=== PATIENT | male | born 1965 | race Caucasian/White ===

== ENCOUNTER 2021-04-20 12:45 | Inpatient (IN) | payer OTHER ==
[~2021-04-20] VITALS: Ht 172.7 cm; Wt 79.1 kg
[2021-04-20 15:11] VITALS: BP 130/74
[2021-04-20] MEDS ORDERED: ZOCOR 20 MG TAB20 M1 PO (15:22)
[2021-04-20] MEDS ORDERED: ASA81BEC PO (15:22)
[2021-04-20] MEDS ORDERED: LISINOPRIL20 MG PO (15:23)
[2021-04-20] MEDS ORDERED: MULTI VITAMIN1 EACH PO (15:26)
[2021-04-20] MEDS ORDERED: CHOLECALCIFEROL PO (15:45)
[2021-04-20] MEDS ORDERED: [UNRECOGNIZED DRUG - OTHER] PO (15:47)
--- NOTE | 2021-04-20 18:02 | NUR ---
PATIENT ADMIT TO UNIT AT 1500. A/O X4. ON OPTIFLOW 60L/85%. GENERLIZE WEAKNESS. VSS. UPDATE WITH . WILL KEEP MONITOR.
[2021-04-20 19:03] VITALS: BP 114/79
--- NOTE | 2021-04-20 20:07 | NUR ---
PT SITTING UP IN BED. PT LUNGS DIMINISHED. OPTI CANDACE INTACT. PT PROVIDED HS SNACK. PT VERBALIZED TO CALL FOR ASSISTANCE. DUSKY SKIN TONE.
[2021-04-20 23:41] VITALS: BP 119/80
--- NOTE | 2021-04-21 00:21 | NUR ---
CRP AND DDIMER RESULTS CALLED TO NUT ROASTER HELPER. CTA NEGATIVE AT [facility] SO NO ORDERS GIVEN REGARDING .85 DDIMER. CLARIFIED WITH PHARMACIST WHETHER OK TO GIVE ACTEMRA. OK TO GIVE ACCORDING TO PHARMACIST CRP RESULTS GIVEN TO PHARMACIST. PREMEDICATED PT ORDERED.
[2021-04-21 03:50] VITALS: BP 128/81
[2021-04-21 05:33] LABS: ABSOLUTE NEUTROPHILS 5.3 thou/uL (1.4-8.2); BASOPHILS 0.4 % (0.0-2.0); HEMATOCRIT 41.7 % (42.0-52.0); HEMOGLOBIN 14.3 gm/dL (14.0-18.0); LYMPHOCYTES 7.8 % (24.0-44.0); MCH 31.1 pg (26.0-34.0); MCHC 34.4 g/dL (28.0-37.0); MCV 90.4 fL (80.0-100.0); MONOCYTES 8.3 % (1.0-8.0); PLATELET COUNT 317 thou/uL (150-400); POLYS 83.5 % (36.0-66.0); RBC 4.61 mil/uL (4.50-6.00); RDW 12.2 % (10.5-14.5); WBC 6.3 thou/uL (4.0-11.0)
[2021-04-21 05:43] LABS: INR 0.99; PROTIME 10.8 Seconds (10.5-12.1)
[2021-04-21 05:48] LABS: ALBUMIN 2.7 g/dL (3.4-5.0); CALCIUM 8.2 mg/dL (8.5-10.1); CREATININE 1.1 mg/dL (0.7-1.3); DIRECT BILIRUBIN 0.2 mg/dL (<0.1-0.2); MAGNESIUM 2.5 mg/dL (1.8-2.4); TOTAL PROTEIN 6.6 g/dL (6.4-8.2)
--- NOTE | 2021-04-21 06:16 | NUR ---
PT RESTING QUIETLY ON OPTIFLOW LF50%, FIO2 90%. DENIED PAIN OR SOA PRESENTLY. VSS . 37.1 T.
[2021-04-21 07:31] VITALS: BP 121/81
[2021-04-21 11:35] VITALS: BP 116/77
--- NOTE | 2021-04-21 13:36 | NUR ---
INITIAL ASSESSMENT: SW reviewed chart and spoke with nursing and attending physician. Pt was transferred to [facility] from [facility] due to COVID. Pt placed in Enhanced Isolation. Pt is afebrile and requiring optiflow. Pt is on IV steroids, IV abx and Remdesivir. SW placed call to pt's room. No answer. CHERRY spoke with pt's , Candace, via phone. Introduced role of SW. Per Candace, pt had first positive COVID test on 04/10/2021. Pt was admitted to [facility] on 04/17/2021. Pt is normally alert/orientated x 4. Pt lives at home with his and family in [place], [place]. Pt is independent with ADLs. Pt has a home bipap machine that he uses due to sleep apnea. No hx of services or post-acute placement. Pt's PCP is Dr. Edith Plasencia. No weekend discharge planned. Therapy evals to be ordered when pt is able to participate. CHERRY is following to assist as needed with discharge planning.
--- NOTE | 2021-04-21 14:18 | NUR ---
TOOK OVER CARE OF THIS PATIENT AT 0700. PT RESTING IN BED AT THIS TIME ON 55 L OPTIFLOW WITH FIO2 92%. PT DENIES SOA BUT BECOMES SOA WITH EXERTION. PT HAS PRODUCTIVE COUGH WITH THICK, BEIGE SPUTUM. PRN COUGH MEDICATION GIVEN. PT DENIES CHEST PAIN. PT DENIES N/V/D/F. FALL PRECAUTIONS IN PLACE AND CALL LIGHT WITHIN REACH.
[2021-04-21 15:20] VITALS: BP 124/69
--- NOTE | 2021-04-21 16:00 | NUR ---
WENT TO ASSESS PATIENT THIS AFTERNOON AT 1500. PT O2 SATURATION 83%; PT REPORTS NOT BEING ABLE TO CATCH BREATH. STAT PAGED RESPIRATORY THERAPY AND . WOULD LIKE PATIENT TO BE TRANSFERRED TO ICU DUE TO INCREASED O2 REQUIREMENTS AND POSSIBLE DECOMPENSATION. PT NOW ON 69 L OPTIFLOW WITH 96% FI02. STRAP SETTER ABE INFORMED AND SHE STATED SHE WOULD CALL ME BACK.
[2021-04-21 17:12] VITALS: BP 127/75
[2021-04-21 18:00] VITALS: BP 114/71
--- NOTE | 2021-04-21 19:03 | NUR ---
pt Candace updated on patient condition. pt alert and oriented X4. Pt on 100% bipap 16/6 settings. pt has a lopez catheter in place.
--- NOTE | 2021-04-21 22:09 | NUR ---
PT ALERT AND ORIENTED X4. VSS T 98.5 AX.HT RT 40s-50s PRESENTLY SA ON THE MONITOR, LUNGS DIMINSHED GREATER ON THE RIGHT THAN LEFT. FIO2 TITRATED TO 90% PER RT. SAT IS 96%. FEET ARE COOL. PEDAL PULSES NOT PALPABLE PRESENTLY. WITH DOPPLER I WAS ABLE TO HEAR FAINT POST TIBIAL PULSES AND AND FAINT RIGHT PEDAL PULSE. 2 WARM BLANKETS APPLIED. NOTIFIED SLOT FLOORPERSON OF CHANGE IN ASSESSMENT OF PULSES COMPARED TO DAY SHIFT ASSSESSMENT. URINE SENT TO LAB ORDERED. WILL CONTINUE TO MONITOR PT FOR CHANGES.
--- NOTE | 2021-04-21 23:47 | NUR ---
ASSESSMENT COMPLETED FOR MN. LOWER EXTREMETIES ARE WARMER AFTER 3 WARM BLANKETS APPLIED. PULSES EASILY PALPABLE ON LEFT. RLE DOPPLERS STILL NEEDED. PROFESSOR OF SOCIOLOGY NOTIFIED. RLE ARTERIAL DOPPLERS DONE AND LLE CANCELED PER PROFESSOR OF SOCIOLOGY REQUEST.
[2021-04-22] VITALS (24 sets, daily range): BP systolic 90–128; BP diastolic 58–80
[2021-04-22 02:59] LABS: ABSOLUTE NEUTROPHILS 6.6 thou/uL (1.4-8.2); BASOPHILS 0.1 % (0.0-2.0); HEMATOCRIT 40.6 % (42.0-52.0); HEMOGLOBIN 13.5 gm/dL (14.0-18.0); LYMPHOCYTES 8.2 % (24.0-44.0); MCH 30.5 pg (26.0-34.0); MCHC 33.4 g/dL (28.0-37.0); MCV 91.4 fL (80.0-100.0); MONOCYTES 5.7 % (1.0-8.0); PLATELET COUNT 326 thou/uL (150-400); RBC 4.44 mil/uL (4.50-6.00); RDW 12.1 % (10.5-14.5); WBC 7.7 thou/uL (4.0-11.0)
[2021-04-22 03:46] LABS: DIRECT BILIRUBIN 0.1 mg/dL (<0.1-0.2); PHOSPHORUS 4.2 mg/dL (2.5-4.9)
[2021-04-22 03:48] LABS: ALBUMIN 2.4 g/dL (3.4-5.0); CALCIUM 7.9 mg/dL (8.5-10.1); POTASSIUM 5.4 mmol/L (3.5-5.1); TOTAL BILIRUBIN 0.4 mg/dL (0.2-1.0)
--- NOTE | 2021-04-22 06:30 | NUR ---
PT PROGRESSING SLOWLY TOWARDS D/C GOALS. VSS AFEBRILE THIS AM. PT C/O AT 0555 THAT HE FELT LIKE HE NEEDED TO URINATE AND WANTED A URINAL. PATEL APPEARED TO BE INFLATED IN WRONG POSITION. REINSERTED PATEL. 900 ML CLEAR YELLOW URINE OBTAINED. PT STATED HE FELT RELIEF OF SENSATION THAT HE HAD TO URINATE EVERY FEW MINUTES. WILL NOTIFY RIDES SUPERVISOR URINE OUTPUT IMPROVED WITH REINSERTION.
--- NOTE | 2021-04-22 12:50 | NUR ---
RT CAME BY THIS AM AND BUT PATIENT ON HIFLOW PATIENT WAS DOING WELL ON THIS UNTIL HE HAD A COUGHING FIT AND ASKED FOR THE BIPAP TO BE PLACED BACK ON. BIPAP WAS PLACED ON PATIENT 02 UP TO HI 90'S.
--- NOTE | 2021-04-22 13:14 | NUR ---
DOCTOR MONTEZ CAME IN AND ASKED FOR FLUID TO RESTART. ORDER PUT IN. CALLED DOCTOR RED ABOUT LASIX ORDER AND FLUID ORDER AND HE ASKED FOR THE FLUIDS TO BE DECREASED TO 80 ML/HR AND LASIX TO STILL BE GIVEN. PATIENT IS RESTING IN BED WITH CALL VELASQUEZ IN REACH.
--- NOTE | 2021-04-22 13:22 | NUR ---
PATIENT 02 WAS 99% ON 90% FIO2. WAS TURNED DOWN TO 80% FIO2
--- NOTE | 2021-04-22 16:29 | NUR ---
TALKED TO REECE ON THE PHONE LET HER KNOW THAT HE HAS BEEN ON AND OFF THE BIPAP A COUPLE TIME TODAY. WHEN OF THE BIPAP HE WAS ON ACCUFLOW. ALSO LET HER KNOW THAT HE HAS GONE DOWN TO 80% FIO2 FOR NOW. PATIENT IS RESTING IN BED WITH CALL VELASQUEZ IN REACH.
--- NOTE | 2021-04-22 19:04 | NUR ---
PATIENT CALLED RN IN TO ROOM. HE WAS BLOWING HIS NOISE AND HAD BLOOD CLOTS COMING OUT. HE BLOW HIS NOISE A FEW MORE TIMES AND HAD MORE CLOTS COME OUT. RT WAS CALLED TO CHECK ON HIM. PATIENT IS RESTING IN BED WITH CALL VELASQUEZ IN REACH. REPORT GIVEN TO NIGHT RN.
[2021-04-23] VITALS (25 sets, daily range): BP systolic 91–117; BP diastolic 44–71
[2021-04-23 02:08] LABS: HIV ANTIBODY Non Reactive (Non Reactive)
[2021-04-23 03:04] LABS: HEMATOCRIT 43.5 % (42.0-52.0); HEMOGLOBIN 14.8 gm/dL (14.0-18.0); MCH 30.2 pg (26.0-34.0); MCV 88.9 fL (80.0-100.0); RBC 4.89 mil/uL (4.50-6.00); RDW 11.9 % (10.5-14.5); WBC 8.8 thou/uL (4.0-11.0)
[2021-04-23 03:14] LABS: DIRECT BILIRUBIN 0.2 mg/dL (<0.1-0.2); PHOSPHORUS 3.8 mg/dL (2.6-4.7)
[2021-04-23 03:20] LABS: ALBUMIN 2.7 g/dL (3.4-5.0); CALCIUM 8.5 mg/dL (8.5-10.1); TOTAL BILIRUBIN 0.5 mg/dL (0.2-1.0); TOTAL PROTEIN 5.7 g/dL (6.4-8.2)
--- NOTE | 2021-04-23 11:20 | NUR ---
TALKED TO PATIENT REECE ON THE PHONE SHE WANTED UPDATE ON HOW HE WAS DOING. TOLD HER HE WAS ON THE HIFLOW TODAY LONGER THEN YESTERDAY AND 02 IS STAYING IN MID 90'S. SHE ASKED ABOUT LABS, TOLD HER NUMBERS SHE ASKED FOR. PATIENT IS RESTING IN BED WITH CALL VELASQUEZ IN REACH.
--- NOTE | 2021-04-23 18:29 | NUR ---
RT CAME IN AND PLAYED WITH THE ETT TUBE AND CHANGED THE SETTING ON THE VENT. PATIENT IS TOLERATED MUCH BETTER NOW. HE IS RESTING IN BED WITH CALL VELASQUEZ IN REACH.
[2021-04-24] VITALS (25 sets, daily range): BP systolic 88–106; BP diastolic 51–67
[2021-04-24 03:43] LABS: ALBUMIN 2.5 g/dL (3.4-5.0); CALCIUM 8.3 mg/dL (8.5-10.1); DIRECT BILIRUBIN 0.2 mg/dL (<0.1-0.2); PHOSPHORUS 3.4 mg/dL (2.5-4.9); POTASSIUM 4.3 mmol/L (3.5-5.1); TOTAL BILIRUBIN 0.5 mg/dL (0.2-1.0); TOTAL PROTEIN 5.8 g/dL (6.4-8.2)
[2021-04-24 05:21] LABS: BE(vivo) -0.2 mmol/L (-2 to +3); HCO3 23.7 mmol/L (22.0-26.0); PCO2 36.5 mmHg (35.0-45.0); PO2 68.5 mmHg (80.0-100.0); sO2 94.3 % (92.0-98.0)
--- NOTE | 2021-04-24 09:14 | NUR ---
0830: DR. MAXWELL AT BEDSIDE FOR EVAL. NOTIFIED HIM OF PT'S C/O MID CHEST/UPPER GI PAIN. PT REPORTS FEELING LIKE "A GAS BUBBLE," RATED 6/10, NO RADIATION, WORSENS WITH DEEP BREATHS. RN TO ADMINISTER TYLENOL PER EMAR. LIKELY GASTRIC FROM HIGH DOSE STEROIDS PER MD. MD TO PLACE ORDER FOR MAALOX. PT ALREADY ON SCHEDULED PANTOPRAZOLE. NSR ON TELE, NO C/O DIZZINESS, NOT DIAPHORETIC, NO EKG CHANGES NOTED. OKAY TO START REGULAR DIET AND D/C IVF.
--- NOTE | 2021-04-24 09:17 | NUR ---
0845: RN DISCUSSED CURRENT POC WITH DR. BAIG DURING INTERDISCIPLINARY ROUNDS. PT CURRENTLY ON OPTIFLOW 60L AT 100%. SPO2 RANGING FROM 88-94%. RR 12-25. PT DENIES ACUTE CONCERNS, READY TO GET BETTER. NOTIFED TEAM PT IS STARTING REGULAR DIET. PHARMACY TO REVIEW MEDS AND DETERMINE IF VELTASSA IS STILL NEEDED PT ON 40MG LASIX BID AND K+ 4.3 THIS AM. WILL CONTINUE TO MONITOR. PT UPDATED ON POC.
--- NOTE | 2021-04-24 10:19 | NUR ---
1000: PT USING INCENTIVE SPIROMITER REGULARLY AND APPROPIATELY.
--- NOTE | 2021-04-24 11:56 | NUR ---
1145: RN SPOKE WITH PHARMACIST REGARDING PT'S VALTESSA. PT'S K+ 4.3 THIS AM. HOLD DOSE PER PHARMACY LIKELY WILL BE DISCONTINUED AND DOES NOT NEED TODAY LEVEL IS WNL.
[2021-04-25] VITALS (23 sets, daily range): BP systolic 88–118; BP diastolic 48–93
[2021-04-25 06:44] LABS: ALBUMIN 2.7 g/dL (3.4-5.0); CALCIUM 8.2 mg/dL (8.5-10.1); CREATININE 1.1 mg/dL (0.7-1.3); POTASSIUM 4.4 mmol/L (3.5-5.1)
--- NOTE | 2021-04-25 07:31 | NUR ---
ASSUME CARE 1900. PT/VITALS STABLE. DENIES ANY PAIN. PARTIDA. SOB NOTED WITH MILD EXERTION. NO DISTRESS NOTED THROUGH THE SHIFT. SPO2 96-98% ON OPTIFLOW AT 100% FIO2/60L. PT NOTED TRIPOD BREATHING A MODERATE # OF TIMES THROUGH THE NIGHT. ASSESSMENT CHARTED. PROGRESSING MODERATELY WITH POC. SR ON MONITOR. PLAN ISTO CONTINUE TO MONITOR AND MANAGE RESP FUNCTION FOR IMPROVEMENT. WILL CONTINUE TO MONITOR AND FOLLOW WITH POC
--- NOTE | 2021-04-25 14:38 | NUR ---
CHERRY reviewed chart. Pt was transferred to ICU from on 04/21. Pt with orders to transfer out of ICU today to . Pt remains in Enhanced Isolation due to COVID. Pt is afebrile and requiring bipap support. Pt is on IV meds and Remdesivir. Pt will need new therapy evals ordered once out of ICU. Pt lives at home with his . Enhanced Isolation precautions to be discontinued on 05/01/2021, as pt's first positive COVID test was on 04/10/2021. CHERRY is following to assist as needed with discharge planning.
--- NOTE | 2021-04-25 23:11 | NUR ---
Pt attempting to self prone while wearing bipap.
[2021-04-26] VITALS (27 sets, daily range): BP systolic 81–119; BP diastolic 46–74
[2021-04-26 05:45] LABS: ALBUMIN 2.9 g/dL (3.4-5.0); CALCIUM 8.5 mg/dL (8.5-10.1); CREATININE 1.3 mg/dL (0.7-1.3); DIRECT BILIRUBIN 0.2 mg/dL (<0.1-0.2); POTASSIUM 4.3 mmol/L (3.5-5.1); TOTAL BILIRUBIN 0.7 mg/dL (0.2-1.0); TOTAL PROTEIN 6.3 g/dL (6.4-8.2)
--- NOTE | 2021-04-26 10:13 | NUR ---
Nutrition: pt admitted with COVID PNA, respiratory failure. Tx to ICU from 3 hanover on bipap support. Currently Optiflow. Has diet order and is eating although appetite is poor. No weight loss over admit. On vitamin pack, steroid, lasix. 04/25 BM. Will offer ensure BID and follow for improved po trends. Otherwise place as low risk with interventions in place.
--- NOTE | 2021-04-26 18:35 | NUR ---
PT TRANSFERRED FROM ICU TO ROOM 352, ALERT AND ORIENTED X4. ON OPTIFLOW 90%, 60L. SOB WITH EXERTION. USUES URINAL. UP TO BSC WITH 1 ASSIST. CALL LIGHT AND TABLE WITHIN REACH. DENIES ANY NEEDS LIANNE. WILL CONTINUE TO MONITOR.
--- NOTE | 2021-04-26 22:33 | NUR ---
PT RESTING IN SEMI FOWLERS POSITION. OPTI CANDACE INTACT. PT USING URINAL AT BEDSIDE. LUNGS CRACKLES. RIJ INTACT. PT CALLS FOR ASSIST.
--- NOTE | 2021-04-26 23:43 | NUR ---
PT USED URINAL AND REPOSITIONED, O2 SAT 86% ON OPTI CANDACE 100%. NOTIFIED RESPIRATORY.
[2021-04-27 04:17] VITALS: BP 101/71
[2021-04-27 05:35] LABS: ABSOLUTE NEUTROPHILS 17.2 thou/uL (1.4-8.2); BASOPHILS 0.1 % (0.0-2.0); EOSINOPHILS 0.9 % (0.0-3.0); HEMATOCRIT 49.8 % (42.0-52.0); HEMOGLOBIN 17.2 gm/dL (14.0-18.0); MCH 30.4 pg (26.0-34.0); MCHC 34.7 g/dL (28.0-37.0); MCV 87.7 fL (80.0-100.0); MONOCYTES 3.8 % (1.0-8.0); PLATELET COUNT 415 thou/uL (150-400); POLYS 93.2 % (36.0-66.0); RBC 5.67 mil/uL (4.50-6.00); WBC 18.4 thou/uL (4.0-11.0)
[2021-04-27 05:57] LABS: CALCIUM 8.6 mg/dL (8.5-10.1); CREATININE 1.3 mg/dL (0.7-1.3); DIRECT BILIRUBIN 0.2 mg/dL (<0.1-0.2); PHOSPHORUS 4.5 mg/dL (2.5-4.9); POTASSIUM 4.3 mmol/L (3.5-5.1); TOTAL BILIRUBIN 0.7 mg/dL (0.2-1.0); TOTAL PROTEIN 6.4 g/dL (6.4-8.2)
[2021-04-27 07:00] VITALS: BP 90/56
[2021-04-27 12:00] VITALS: BP 130/66
--- NOTE | 2021-04-27 12:01 | NUR ---
SW reviewed chart and spoke with nursing and attending physician. Pt was transferred to from ICU. Pt remains in Enhanced Isolation due to COVID. Pt is afebrile and on optiflow. Pt is on IV abx, IV lasix and Remdesivir. SW requested therapy evals to be ordered when pt is able to participate. SW is following to assist as needed with discharge planning.
--- NOTE | 2021-04-27 12:38 | NUR ---
CARE ASSUMMED THIS AM, PT ALERT AND ORIENTED X4. DENIES ANY NAUSEA AND VOMITTING. CONTINUE TO BE ON OPTIFLOW 100%, 60L. TAKES PT A WHILE TO CATCH HIS BREATH WITH ANY ACTIVITY.OB WITH ANY ACTIVITY. HELD PT LISINOPRIL DUE TO ,OW BP, DR. MOON MADE AWARE. USES URINAL AND BSC INDEPENDENTLY. CALLED AND UPDATED ABPUT PT CARE. DENIES ANYNEEDS LIANNE
[2021-04-27 13:54] LABS: T-SPOT.TB Negative
[2021-04-27 15:55] VITALS: BP 91/55
[2021-04-27 19:08] VITALS: BP 104/66
[2021-04-28] VITALS (7 sets, daily range): BP systolic 91–114; BP diastolic 57–80
--- NOTE | 2021-04-28 00:49 | NUR ---
PT ALERT AND ORIENTED X4. VSS AFEBRILE. SATS UPPER 80S TO LOW 90S. UNLABORED PRESENTLY AT REST WITH OPTIFLOW FIO2 100% AND LF 60. BS DIMINISHED AT BASES. SMALL AMT BLOOD TINGED SPUTUM NOTED X1. HUMIDIFIER ON OPTIFLOW. NO C/O PAIN. BED DOWN. CALL LIGHT IN REACH. WILL CONTINUE TO MONITOR PT FOR CHANGES.
[2021-04-28 03:55] LABS: HEMATOCRIT 49.4 % (42.0-52.0); HEMOGLOBIN 16.8 gm/dL (14.0-18.0); MCH 30.1 pg (26.0-34.0); MCHC 34.1 g/dL (28.0-37.0); MCV 88.5 fL (80.0-100.0); RBC 5.58 mil/uL (4.50-6.00); RDW 12.2 % (10.5-14.5); WBC 21.3 thou/uL (4.0-11.0)
[2021-04-28 04:13] LABS: CALCIUM 9.1 mg/dL (8.5-10.1); CREATININE 1.2 mg/dL (0.7-1.3); DIRECT BILIRUBIN 0.1 mg/dL (<0.1-0.2); MAGNESIUM 2.4 mg/dL (1.8-2.4); PHOSPHORUS 3.8 mg/dL (2.5-4.9); POTASSIUM 4.2 mmol/L (3.5-5.1); TOTAL BILIRUBIN 0.5 mg/dL (0.2-1.0); TOTAL PROTEIN 6.2 g/dL (6.4-8.2)
--- NOTE | 2021-04-28 06:25 | NUR ---
AT APPROXIMATELY 01:30 PT DESATTED TO 78% AT REST. RT WAS NOTIFIED. PT HAD DESATTED EARLIER AND TOOK SOME TIME TO RECOOP TO 90. PT CHANGED TO BIPAP PER RT DUE TO DESATS AND PT LOOKING TIRED. PT ON BIPAP 100% FIO2. SATS WHILE ON RIGHT SIDE 96%. SATS WHILE LAYING ON LEFT SIDE 86%. BP MODERATELY LOW. SEE VS. HELD LASIX THIS AM. CASH PROCESSING SPECIALIST WAS NOTIFIED OF BP RUNNING SLIGHTLY LOW EARLIER TONIGHT. NO FURTHER BLOODY SPUTUM NOTED EXCEPT EARLIER TONIGHT.
--- NOTE | 2021-04-28 13:09 | NUR ---
SW reviewed chart and spoke with nursing and attending physician. Pt remains in Enhanced Isolation due to COVID. Pt is afebrile and requiring bipap support. Pt is on IV meds and Remdesivir. No weekend discharge planned. Pt will need therapy evals ordered when able to participate. CHERRY is following to assist as needed with discharge planning.
--- NOTE | 2021-04-28 18:23 | NUR ---
ASSUMED PATIENT CARE AT 0700. A/O X4. ON BIPAP/OPTIFLOW. DESAT WITH EXERTION. POOR APPATITE, NOT TOWARDS POC GOALS.
--- NOTE | 2021-04-29 00:28 | NUR ---
PT PROGRESSING SLOWLY TOWARDS D/C GOALS. PT ON BIPAP FIO2 70% TONIGHT. SATS 89-90% PRESENTLY. LUNGS DIMINISHED MAINLY AT BASES. PRODUCTIVE COUGH NOTED SMALL AMT PINK TINGED SPUTUM NOTED. INFORMED PT TO CALL NS IF COUGING UP ANY MORE BLOOD. BP STILL MARGINALLY LOW IN THE LOWER 90S. SCHEDULED COUGH MEDICINE GIVEN. PT IS NOW SLEEPING . BED DOWN. CALL LIGHT IN REACH.
[2021-04-29 03:54] VITALS: BP 96/61
[2021-04-29 05:33] LABS: ALBUMIN 2.7 g/dL (3.4-5.0); CALCIUM 8.2 mg/dL (8.5-10.1); DIRECT BILIRUBIN 0.2 mg/dL (<0.1-0.2); PHOSPHORUS 3.7 mg/dL (2.5-4.9); POTASSIUM 4.4 mmol/L (3.5-5.1); TOTAL BILIRUBIN 0.7 mg/dL (0.2-1.0); TOTAL PROTEIN 5.7 g/dL (6.4-8.2)
--- NOTE | 2021-04-29 06:16 | NUR ---
NOTIFIED CONCRETE POURER REGARDING BP STILL IN THE 90S. PHARMACY RESCHEDULED 0700 DOSE FOR 0900 REQUESTED. ALSO NOTIFIED HER REGARDING BLOOD TINGED SPUTUM THIS AM AGAIN. LEFT SPUTUM CUP IN RM FOR PT TO SAVE FOR DR TO SEE. .
[2021-04-29 07:23] VITALS: BP 106/68
[2021-04-29 11:03] VITALS: BP 108/70
[2021-04-29 15:03] VITALS: BP 108/52
--- NOTE | 2021-04-29 18:27 | NUR ---
ASSUMED PATIENT CARE AT 0700. A/O X4. VSS. ON OPTIFLOW MOST OF TIME. SLOWLY TOWARDS POC GOALS.
[2021-04-29 18:58] VITALS: BP 105/71
[2021-04-30 04:05] VITALS: BP 105/81
[2021-04-30 07:14] VITALS: BP 109/74
--- NOTE | 2021-04-30 07:23 | NUR ---
Patient making slow progress towards outcome goals. Continues to require Optiflow/BIPAP to maintain oxygen saturation above 90%. Desaturates to mid 80's with any activity. Appetite poor, trying to eat more. updated with progress.
[2021-04-30 11:15] VITALS: BP 107/68
--- NOTE | 2021-04-30 14:52 | NUR ---
PT CONTINUE TO BE ON 100% FIO2 BUT 50L OF OXYGEN. SOB WITH ANY ACTIVITY. HAD A BM THIS AM. APPETITE CONTINUE TO BE POOR, PT IS DRINGKING ENSURE SUPPLEMENT THOUGH. USE URINAL. CALLED UPDATED GIVEN AND DR. MOON MADE AWARE ABOUT WANTING AN UPDATE FROM HIM. DENIES ANY NEEDS LIANNE, WILL CONTINUE TO MONITOR.
[2021-04-30 15:22] VITALS: BP 108/76
[2021-04-30 20:15] VITALS: BP 113/60
[2021-05-01 03:22] VITALS: BP 110/60
--- NOTE | 2021-05-01 05:59 | NUR ---
Patient making slowprogress towards outcome goals. Requires optiflow 50L/94% when awake/BIPAP at 100% during sleep to maintain sats 92-95%. Tachycardic up to 130's with any activity. BP stable. Appetite and weakness slowly improving, drinking ensure supplements. Denies pain. Diuresing from Lasix. Candace updated on progess, she is anxious to visit but wants clearance from infectious disease.
[2021-05-01 07:42] VITALS: BP 104/67
--- NOTE | 2021-05-01 11:28 | NUR ---
SW reviewed chart and spoke with nursing and attending physician. Enhanced Isolation precautions to be discontinued today. Pt's to visit later today. Pt is afebrile and requiring optiflow. Pt has been using the bipap at HS. Pt is on IV abx and IV lasix. Therapy evals to be ordered when pt is able to participate. CHERRY is following to assist as needed with discharge planning.
[2021-05-01 11:29] VITALS: BP 112/75
[2021-05-01 15:23] VITALS: BP 112/76
[2021-05-01 19:14] VITALS: BP 99/66
[2021-05-02 03:25] VITALS: BP 94/59
[2021-05-02 07:52] VITALS: BP 118/77
--- NOTE | 2021-05-02 08:21 | NUR ---
Pt. stated he slept well during the night. Maintaining O2 sat in the low to mid 90's on Optiflow 50%/93L. He does get short of breath with exertion and verbalized it's getting better. Off enhanced precaution , afebrile. Voiding per urinal. Making some progress towards care plan goals.
[2021-05-02 11:32] VITALS: BP 106/74
--- NOTE | 2021-05-02 13:55 | NUR ---
SW reviewed chart and spoke with nursing and attending physician. Enhanced Isolation was discontinued yesterday. SW met with pt at bedside. Introduced role of SW. Pt is alert/orientated. Pt is requiring optiflow. Pt is on IV abx and IV lasix. PT/OT evals ordered today. SW discussed therapy evals and possible need for rehab prior to returning home. Pt verbalized understanding. SW asked [facility] regional rehabilitation director to follow for possible acute rehab consult. Will need insurance auth for post-acute needs. SW is following to assist as needed with discharge planning.
[2021-05-02 15:54] VITALS: BP 105/66
[2021-05-02 19:21] VITALS: BP 107/58
[2021-05-03 03:15] VITALS: BP 100/69
--- NOTE | 2021-05-03 04:07 | NUR ---
Up in the recliner chair till HS. visited with him. Assisted back to bed. Short of breath with exertion . Maintaining O2 sat in the low to mid 90's on Optiflow at 50L/90%. He stated he slept well during the night in prone position. Voiding per urinal. Making some progress towards care plan goals.
[2021-05-03 07:00] VITALS: BP 104/70
[2021-05-03 09:00] LABS: HEMATOCRIT 48.7 % (42.0-52.0); HEMOGLOBIN 16.3 gm/dL (14.0-18.0); MCH 29.7 pg (26.0-34.0); MCHC 33.4 g/dL (28.0-37.0); MCV 88.8 fL (80.0-100.0); PLATELET COUNT 334 thou/uL (150-400); RBC 5.48 mil/uL (4.50-6.00); RDW 11.9 % (10.5-14.5); WBC 34.7 thou/uL (4.0-11.0)
[2021-05-03 09:10] LABS: CREATININE 1.3 mg/dL (0.7-1.3); POTASSIUM 4.9 mmol/L (3.5-5.1)
[2021-05-03 09:28] LABS: BE(vivo) 5.9 mmol/L (-2 to +3); HCO3 28.3 mmol/L (22.0-26.0); PCO2 34.6 mmHg (35.0-45.0); PO2 62.3 mmHg (80.0-100.0); pH 7.531 (7.360-7.450); sO2 94.3 % (92.0-98.0)
--- NOTE | 2021-05-03 09:47 | NUR ---
DRIVER MATERIAL HANDLER CALLED THIS AM FOR DECREASED 02, TACHYCARDIA. SEE FLOWSHEET FOR DETAILS.
[2021-05-03 11:00] VITALS: BP 9/60
[2021-05-03 11:05] LABS: ABSOLUTE NEUTROPHILS 31.2 thou/uL (1.4-8.2)
--- NOTE | 2021-05-03 13:09 | NUR ---
Nutrition status changed to moderate risk
--- NOTE | 2021-05-03 15:32 | NUR ---
SW reviewed chart and spoke with nursing and attending physician. Pt is slowly progressing towards goals for discharge. [facility] called this morning due to respiratory distress. [facility] consulted and is following pt for possible admission to in acute rehab. Pt's O2 needs must be down to 8L or less. Pt currently still on optiflow. Pt is on IV lasix. SW met with pt at bedside to discuss discharge dispostion. SW provided list of LTAC facilities if needed. SW explained that acute rehab facilities are not able to accommodate optiflow. [facility], who both state the max is 10L with exertion. SW waiting to hear back for [facility]. Therapy to continue to work with pt. SW is following to assist as needed with discharge planning.
[2021-05-03 19:06] VITALS: BP 110/65
[2021-05-04 03:02] VITALS: BP 111/81
--- NOTE | 2021-05-04 04:03 | NUR ---
Pt. slept fair during the night. Maintaining O2 sat in the mid 90's on Optiflow 60L/100%. Shortness of breath with exertion. Off enhanced precaution and he has been afebrile.Making some progress towards care plan goals.
[2021-05-04 06:00] LABS: HEMATOCRIT 41.8 % (42.0-52.0); MCH 29.9 pg (26.0-34.0); MCV 87.7 fL (80.0-100.0); RBC 4.76 mil/uL (4.50-6.00); RDW 11.9 % (10.5-14.5); WBC 23.9 thou/uL (4.0-11.0)
[2021-05-04 06:21] LABS: HEMOGLOBIN 14.2 gm/dL (14.0-18.0); PLATELET COUNT 247 thou/uL (150-400)
[2021-05-04 06:29] LABS: CALCIUM 8.3 mg/dL (8.5-10.1); CREATININE 0.9 mg/dL (0.7-1.3); POTASSIUM 4.6 mmol/L (3.5-5.1)
[2021-05-04 08:06] VITALS: BP 103/70
[2021-05-04 10:14] LABS: ABSOLUTE NEUTROPHILS 21.3 thou/uL (1.4-8.2)
[2021-05-04 11:29] VITALS: BP 98/61
--- NOTE | 2021-05-04 15:32 | NUR ---
PER CHERRY, ANTONIO SW spoke with nursing and attending physician. Pt remains on optiflow. [facility] is following for possible admission to inpt acute rehab. SW discussed with [facility] rehab director. SW discussed LTAC with pt yesterday due to high O2 demands. List of area LTACs provided to pt for review. SW is following to assist as needed with discharge planning. AUDREY Guzman
[2021-05-04 15:46] VITALS: BP 101/69
[2021-05-04 19:59] VITALS: BP 92/56
[2021-05-05 04:07] VITALS: BP 112/74
--- NOTE | 2021-05-05 07:46 | NUR ---
Patient making slow progress towards outcome goals. Vital signs and rhythm stable. Does get tachycardic up to 130 with activity. Requires oxygen per optiflow 60L/100% sats mid to upper 90's. Appetite improving, trying to increase activity out of bed.
[2021-05-05 08:12] VITALS: BP 104/72
[2021-05-05 11:10] VITALS: BP 99/62
--- NOTE | 2021-05-05 14:23 | NUR ---
CHERRY reviewed chart and spoke with nursing and attending physician. Pt remains on optiflow at this time. Pt is on IV abx and IV lasix. CHERRY received call from pt's , Candace, regarding discharge plan. Pt may be more appropriate for admission to LTAC due to high O2 needs. SW explained admission criteria for LTAC v. inpt acute rehab. Pt and verbalized understanding and will review and possibly tour the LTACs. [facility] is the closest to where pt and live. CHERRY contacted [facility] liaison to check bed availability for next week. No weekend discharge planned. Will need insurance auth for LTAC admission. CHERRY is following to assist as needed with discharge planning.
[2021-05-05 15:26] VITALS: BP 97/63
--- NOTE | 2021-05-05 17:39 | NUR ---
PATIETN ALERT AND ORIENTED X 4. ON 60L OPTIFLOW. C/O SOB, DESATS TO UPPER 80'S WITH EXERTION. HR BETWEEN 95-125, TACHYCARDIC WITH EXERTION. NS@75/HR. IV ANTIBIOTICS. NO OTHER COMPLAINTS
[2021-05-05 19:21] VITALS: BP 104/62
[2021-05-06 03:47] VITALS: BP 106/69
--- NOTE | 2021-05-06 06:21 | NUR ---
Patient is alert and oriented x4. Patient is on optiflow at 60L o2 and 100%. Patietn is cc/ tele and has been runnin sinus rhythm this shift. Patient had a BM last on 05/05. Paient has used his urinal for continence. Patient gets up x1 assist when trying to utilize the comode. Patient as Left triple lumen IJ that is patent with good blood return. Two of the lumens are saline locked. one is currently infusing with his antibiotics. Patient will continue to be monitored.
[2021-05-06 07:24] VITALS: BP 116/74
[2021-05-06 11:05] VITALS: BP 109/70
[2021-05-06 15:17] VITALS: BP 109/71
--- NOTE | 2021-05-06 18:08 | NUR ---
PT A/O X 4. FAMILY AT BEDSIDE. PT OOB DURING MOST OF SHIFT. PT ON OPTIFLOW 60L 100% FIO2. NO COMPLAINTS OF PAIN. PT/OT RESUMED THIS SHIFT, PT STEADY ON FEET. FALL PRECAUTIONS IN PLACE. WILL CONTINUE TO MONITOR.
[2021-05-06 19:49] VITALS: BP 115/72
[2021-05-07 04:44] VITALS: BP 95/54
[2021-05-07 04:51] LABS: HEMATOCRIT 31.8 % (42.0-52.0); MCH 30.4 pg (26.0-34.0); MCHC 33.9 g/dL (28.0-37.0); MCV 89.8 fL (80.0-100.0); RBC 3.54 mil/uL (4.50-6.00); RDW 12.1 % (10.5-14.5); WBC 16.5 thou/uL (4.0-11.0)
[2021-05-07 04:54] LABS: HEMOGLOBIN 10.8 gm/dL (14.0-18.0)
[2021-05-07 05:01] LABS: CALCIUM 7.7 mg/dL (8.5-10.1); CREATININE 0.8 mg/dL (0.7-1.3); POTASSIUM 3.1 mmol/L (3.5-5.1)
--- NOTE | 2021-05-07 06:22 | NUR ---
PATIENT IS ALERT AND ORIENTED X4. PATIENT IS ON OPTIFLOW AT 60L AT 95% OXYGEN. PATIENT IS CC/ TELE AND HAS BEEN RUNNING SINUS RHYTHM/ SINUS TACH THIS SHIFT. PATIET UTILIZES THE URINAL AND HAS JADE CONTINENT ALL THIS SHIFT. PATIENT GETS UP X1 ASSIST. PATIENT HAS NO SKIN ISSUES TO REPORT AT THIS TIME. PATIENT HAS A LEFT TRIPLE IJ. PATIENTS LUMENS TO THE IJ ARE ALL FLUSHED AND HAVE GOOD BLOOD RETURN. LUMENS ARE SALINE LOCKED. PATIENT HAD A LOW POTASSIUM LEVEL THIS SHIFT AT 3.1. ADRIAN TANG GAVE ORDERS FOR A ONE TIME DOSE OF POTASSIUM AT 40MEQ. PATIENT WILL CONTINUE TO BE MONITORED.
[2021-05-07 07:14] VITALS: BP 98/58
[2021-05-07 11:34] VITALS: BP 112/76
[2021-05-07 16:14] VITALS: BP 100/56
--- NOTE | 2021-05-07 18:07 | NUR ---
ASSUMED PT CARE THIS AM. PT A/O X 4. PT DESATS WHEN USING BSC, HR INCREASES TO 140'S. FAMILY AT BEDSIDE TODAY. NO COMPLAINTS OF PAIN, BUT COMPLAINS OF CONSTIPATION, DOCUSATE GIVEN WITH GOOD RESULTS. PT TO POSSIBLY DC TO LTAC FACILITY TOMORROW (05/08/21). ON OPTIFLOW 55 L 80% FI02. NO CURRENT NEEDS, WILL CONTINUE TO MONITOR.
--- NOTE | 2021-05-08 06:18 | NUR ---
Patient is alert and oriented x4. Patient is on high flow nasal canula at 55L and 85% FIO2. Patient is cc/ tele and has been running sinus rhythm/ sinus tach this shift. Patient is continent of urine with use of urinal. Patient has had no BM this shift. Patient gets up x1 assist with walker and gaitbelt. Patient has a left triple IJ, all lines are patent with good blood return. Patient will continue to be monitored.
[2021-05-08 07:33] VITALS: BP 104/71
[2021-05-08 11:13] VITALS: BP 110/72
--- NOTE | 2021-05-08 13:49 | NUR ---
CHERRY reviewed chart and spoke with nursing and attending physician. Pt remains on optiflow. Pt is on IV abx. CHERRY met with pt and at bedside to discuss discharge plan: LTAC placement. Options reviewed. Pt and request referral to be sent to [facility] due to location. SW faxed referral to [facility] and notified [facility] liaison. Will need insurance auth for LTAC admission. Pt is progressing towards goals for discharge. CHERRY did also confirm that [facility] is also in-network with pt'ps insurance. Awaiting input from [facility] at this time. CHERRY is following to assist as needed with discharge planning.
--- NOTE | 2021-05-08 15:12 | NUR ---
ASSUMED CARE AT 0700. PT CONTINUES TO MOVE TOWARDS [place] GOALS. PT REMAINS ON OPTIFLO 55L/85%. WORKED WITH PT/OT, DESATS TO 80'S WITH HR IN 140'S AND RECOVERS WITHIN 2-3 MINUTES. WAITING ON PLACEMENT.
[2021-05-08 16:53] VITALS: BP 113/75
[2021-05-08 19:52] VITALS: BP 112/73
[2021-05-09 02:39] VITALS: BP 108/68
--- NOTE | 2021-05-09 03:50 | NUR ---
PT MAKING SLOW PROGRESS TOWADS GOALS. O2 SAT WILL FALL TO LOW 80'S WITH ACTIVITY OR COUGHING. PT WILL STOP WHAT HE IS DOING AND FOCUS ON TAKING SLOW DEEP BREATHS TO RECOVE HISO2 SAT THEN RESUME HIS ACTIVITY. REMAINS ON OPTIFLO AT 55L/85%. LUNGS CTA UPPER LOBES, FAINT CRACKLES IN LLL AND DIMINISHED RLL.
[2021-05-09 05:08] LABS: HEMATOCRIT 33.4 % (42.0-52.0); HEMOGLOBIN 11.2 gm/dL (14.0-18.0); MCH 30.1 pg (26.0-34.0); MCHC 33.5 g/dL (28.0-37.0); MCV 89.9 fL (80.0-100.0); PLATELET COUNT 210 thou/uL (150-400); RBC 3.71 mil/uL (4.50-6.00); WBC 16.5 thou/uL (4.0-11.0)
[2021-05-09 05:46] LABS: ABSOLUTE NEUTROPHILS 13.5 thou/uL (1.4-8.2)
[2021-05-09 09:00] VITALS: BP 120/77
[2021-05-09 12:18] VITALS: BP 115/80
--- NOTE | 2021-05-09 16:07 | NUR ---
[facility] liason here to eval pt today and visit with his at bedside. They can accept clinically and have submitted an auth request to pt's [employer] insurance. Care team updated. Their bed avail has been changing day to day.They will call with once they hear back from his ins plan. Clinical updated faxed.
--- NOTE | 2021-05-09 16:36 | NUR ---
ASSUMED PATIENT CARE AT 0700. ON OPTIFLOW 35L/70%. SLOWLY TOWARDS POC GOALS.
[2021-05-09 17:02] VITALS: BP 117/78
[2021-05-10 04:03] VITALS: BP 112/66
--- NOTE | 2021-05-10 06:24 | NUR ---
Patient is alert and oriented x4. He is on high flow nasal canula at 35L and 70% FIO2. Patient is CC/ tele and has run sinus tach this shift. Patient is continent of both urine and bowel. Patient started on a new antibiotic and is tolertating treatment well. Paient has a left triple lumen IJ that is patent with good blood return in all three lumens. Patient will continue to be monitored.
[2021-05-10 07:15] VITALS: BP 116/68
[2021-05-10 11:05] VITALS: BP 116/74
--- NOTE | 2021-05-10 14:48 | NUR ---
CHERRY reviewed chart and spoke with nursing and attending physician. Pt is medically stable for discharge to LTAC. Pt remains on optiflow. CHERRY contacted [facility] at [facility], who states they are waiting on insurance authorization at this time. CHERRY met with pt at bedside to provide update. Pt verbalized understanding. CHERRY is following to assist as needed with discharge planning.
[2021-05-10 15:22] VITALS: BP 113/78
--- NOTE | 2021-05-10 16:06 | NUR ---
CARE ASSUMED THIS AM, ALERT AND ORIENTED X4, DENIES ANY PAIN. CONTINUE TO BE OPTIFLOW, 40L, 75%, SOB WITH EXERTION. USES URINAL AND UP TO BSC X1. PT APPETITE IS BETTER. SLOWLY PROGRESSING TOWARDS CARE. WILL CONTINUE TO MONITOR.
[2021-05-10 19:21] VITALS: BP 109/68
[2021-05-11 03:24] VITALS: BP 114/76
--- NOTE | 2021-05-11 06:12 | NUR ---
Patient is alert and oriented x4. Patient is on optiflow at 40L and 70%. Patient is cc/ tele and has run sinus rhythm/ sinus tach this shift. Patient has utilized his urinal and been continent this shift. Patient has a left triple lumen IJ. All three lumens are patent with good blood return. Patient will continue to be monitored.
[2021-05-11 07:30] VITALS: BP 109/70
[2021-05-11 11:30] VITALS: BP 107/62
--- NOTE | 2021-05-11 12:27 | NUR ---
CHERRY reviewed chart and spoke with nursing and attending physician. Pt remains on optiflow and IV abx. Chest xray ordered today. O2 needs increased earlier today. CHERRY faxed updated clinical info and therapy notes to [facility] for review. Notified [facility] liaison. Awaiting insurance authorization at this time. CHERRY is following to assist as needed with discharge planning.
--- NOTE | 2021-05-11 12:38 | NUR ---
care assunmed this am, pt oxygen need has increased and xray seems worse today. pt encourage to sit up in the chair and use the incentive spirometer frequently. up to bsc with minimal assist and urinal. will continue to monitor pt care.
[2021-05-11 12:53] LABS: CALCIUM 6.3 mg/dL (8.5-10.1); CREATININE 2.4 mg/dL (0.7-1.3)
[2021-05-11 15:30] VITALS: BP 104/67
[2021-05-11 19:14] VITALS: BP 110/70
[2021-05-12 03:47] VITALS: BP 125/83
--- NOTE | 2021-05-12 03:49 | NUR ---
PROGRESS PT A/O X4 UP AD DARRYL. LUNGS CLEAR AND DIMINISHED STILL DESATS WITH ACTIVITY. ON OPTIFLOW 40L/65% DURING DAY AND BIPAP WITH A FACESHEILD AT HS. TOLERATING WELL. LIJ INTACT SL IV ANTIBIOTICS COMPLETED. VOIDING PER URINAL. USING ISP INDEPENDENTLY. PLAN IS TO TRANSFER TO [facility] WHEN MEDICALLY STABLE.
[2021-05-12 04:49] LABS: HEMATOCRIT 33.4 % (42.0-52.0); HEMOGLOBIN 11.3 gm/dL (14.0-18.0); MCH 30.4 pg (26.0-34.0); MCHC 33.9 g/dL (28.0-37.0); MCV 89.5 fL (80.0-100.0); RBC 3.73 mil/uL (4.50-6.00); RDW 12.2 % (10.5-14.5); WBC 14.3 thou/uL (4.0-11.0)
[2021-05-12 05:22] LABS: CALCIUM 8.7 mg/dL (8.5-10.1); CREATININE 0.8 mg/dL (0.7-1.3); MAGNESIUM 2.1 mg/dL (1.8-2.4)
[2021-05-12 07:33] VITALS: BP 116/72
[2021-05-12 11:24] VITALS: BP 111/68
--- NOTE | 2021-05-12 12:23 | NUR ---
CHERRY reviewed chart and spoke with nursing and attending physician. Pt remains on optiflow. Pt is medically stable for discharge to [facility]. CHERRY updated [facility] liaison, who states insurance auth is pending. CHERRY notified that pt's has been in contact with pt's insurance. Per insurance, there was not a request for auth on file. CHERRY discussed with Simón at [facility], who confirms they have submitted for auth and have been sending in updates. Contact info for Saida Hooks ( ) provided for pt's to provide to their contact at [facility] to assist with the authorization process. CHERRY met with pt at bedside to provide update. Pt had the contact info already for [facility]. Pt is aware and agreeable with discharge plan. CHERRY is following to assist as needed with discharge planning.
--- NOTE | 2021-05-12 14:53 | NUR ---
PT UP IN THE CHAIR SINCE AM, SLOWLY PROGRESSING TOWARDS POC. PT OXYGEN NEED IS GETTING BETTER. ENCOURAGE TO US IS AND PRONE WHEN CAN. HAD A BM TODAY. DENIES ANY NEEDS, WILL CONTINUE TO MONITOR.
[2021-05-12 15:40] VITALS: BP 1313/69
[2021-05-12 20:07] VITALS: BP 106/65
[2021-05-13 04:35] VITALS: BP 102/70
--- NOTE | 2021-05-13 07:14 | NUR ---
ASSUMED PT CARE AT 1900. PT IS ALERT & ORIENTED X 4, IS CALM & COOPERATIVE. CURRENTLY ON OPTIFLOW 50L 65% FIO2 AND O2 SATS > 95%. PT IS ABLE TO EXPRESS NEEDS AND ALL NEEDS ARE MET AT THIS TIME. CONTINUE WITH PLAN OF CARE.
[2021-05-13 07:20] VITALS: BP 113/69
[2021-05-13 11:18] VITALS: BP 102/65
[2021-05-13 15:23] VITALS: BP 122/74
--- NOTE | 2021-05-13 17:28 | NUR ---
TOOK OVER CARE PT AT 0700. PT IS A&O X 4, AND HAS BEEN CALM AND SITTING QUIETLY IN HIS ROOM. HE CONTINUES TO PROGRESS AND HAS GOTTEN PLACEMENT AT [facility] AND IS AWAITING A BED. HE IS STILL ON OPTIFLO AT 50L/65%.
[2021-05-13 19:14] VITALS: BP 105/63
[2021-05-14 04:06] VITALS: BP 101/70
[2021-05-14 05:35] LABS: HEMATOCRIT 32.3 % (42.0-52.0); HEMOGLOBIN 11.1 gm/dL (14.0-18.0); MCH 30.8 pg (26.0-34.0); MCHC 34.4 g/dL (28.0-37.0); MCV 89.5 fL (80.0-100.0); PLATELET COUNT 271 thou/uL (150-400); RBC 3.61 mil/uL (4.50-6.00); RDW 12.3 % (10.5-14.5); WBC 13.2 thou/uL (4.0-11.0)
[2021-05-14 05:45] LABS: ALBUMIN 2.2 g/dL (3.4-5.0); CALCIUM 8.5 mg/dL (8.5-10.1); CREATININE 0.7 mg/dL (0.7-1.3); TOTAL BILIRUBIN 0.3 mg/dL (0.2-1.0)
--- NOTE | 2021-05-14 07:18 | NUR ---
Pt. requested HS med early so he can sleep in prone position while on Optiflow ( 50L/65% ). RT put him on BIPAP with 65% FIO2 for 4 hrs. Pt. stated he slept well and feeling much better. Denies being short of breath with exertion and stated he's breathing a lot better and tolerating activities better.Voided per urinal. Progressing towards discharge goals.
[2021-05-14 07:27] VITALS: BP 110/74
[2021-05-14 08:55] LABS: ABSOLUTE NEUTROPHILS 10.3 thou/uL (1.4-8.2); ANISOCYTOSIS SLIGHT; METAMYELOCYTES 1 %; MYELOCYTES 1 %
[2021-05-14 11:18] VITALS: BP 110/59
[2021-05-14 15:13] VITALS: BP 108/68
--- NOTE | 2021-05-14 17:17 | NUR ---
ASSUMED PATIENT CARE AT 0700. A/O X4. TITRATED 02 TO 30L/40% ON OPTIFLOW. PROGRESSING TOWARDS POC GOALS.
[2021-05-14 19:40] VITALS: BP 110/64
[2021-05-15 03:51] VITALS: BP 116/77
--- NOTE | 2021-05-15 06:19 | NUR ---
Pt. requested HS med early so he could sleep for few hrs. on Optiflow in prone position. RT later put him on BIPAP then back to Optiflow this am. He verbalized improvement in his breathing and strength. Voided per urinal. Progressing towards discharge goals.
[2021-05-15 11:37] VITALS: BP 110/66
--- NOTE | 2021-05-15 12:08 | NUR ---
CHERRY reviewed chart and spoke with nursing and attending physician. Pt is medically stable for discharge today. CHERRY faxed updated clinical info to Simón at [facility] for review. Anticipate [facility] will have a bed for pt today. Awaiting confirmation. Chart copy requested. [facility] ambulance form placed on pt's chart. CHERRY is following to assist as needed with discharge planning.
[2021-05-15] MEDS ORDERED: IPRAT-ALBUT 0.5-3 ML INH (14:16)
[2021-05-15] MEDS ORDERED: PROTONIX 20 MG20 M1 PO (14:16)
[2021-05-15] MEDS ORDERED: ENOXAPARIN80 MG/0.8 SUBQ (14:16)
[2021-05-15] MEDS ORDERED: DEXAMETHASONE 44 M1 PO (14:16)
[2021-05-15] MEDS ORDERED: ACETAMINOPHEN325 M1 PO (14:16)
[2021-05-15] MEDS ORDERED: DEEP SEA NASAL44 M1 NASAL (14:16)
[2021-05-15] MEDS ORDERED: MUCINEX600 MG PO (14:16)
[2021-05-15] MEDS ORDERED: FLOMAX0.4 MG PO (14:16)
[2021-05-15] MEDS ORDERED: COLACE 100 MG100 MG PO (14:16)
[2021-05-15 15:34] VITALS: BP 116/80
--- NOTE | 2021-05-15 16:02 | NUR ---
ASSUMED PATIENT CARE AT 0700. A/O X4 . TOLERATED ON 6L/NC. PROGRESSING TOWARDS POC GOALS. [facility] AT 1800.
== END 2021-05-15 19:29 | DRG 871 ==
LOC: 3W 12:45 → ICU 15:12 → 3W 04-26 18:16
PROVIDERS: Hospitalist; Internal Medicine; Nurse Practitioner; Pediatrics; Specialist; ADMIT Hospitalist; ATTEND Hospitalist
PROC: 02HV33Z Insertion of Infusion Device into Superior Vena Cava, Percutaneous Approach (ICD-10-PCS; principal; 2021-04-27)
PROC: 5A0935A Assistance with Respiratory Ventilation, Less than 24 Consecutive Hours, High Flow/Velocity Cannula (ICD-10-PCS; 2021-05-10)
PROC: XW033E5 Introduction of Remdesivir Anti-infective into Peripheral Vein, Percutaneous Approach, New Technology Group 5 (ICD-10-PCS; 2021-05-10)
PROC: 5A0935A Assistance with Respiratory Ventilation, Less than 24 Consecutive Hours, High Flow/Velocity Cannula (ICD-10-PCS; 2021-05-11)
PROC: 5A0935A Assistance with Respiratory Ventilation, Less than 24 Consecutive Hours, High Flow/Velocity Cannula (ICD-10-PCS; 2021-05-11)
PROC: 5A0935A Assistance with Respiratory Ventilation, Less than 24 Consecutive Hours, High Flow/Velocity Cannula (ICD-10-PCS; 2021-05-12)
PROC: 5A09357 Assistance with Respiratory Ventilation, Less than 24 Consecutive Hours, Continuous Positive Airway Pressure (ICD-10-PCS; 2021-05-13)
PROC: 5A09357 Assistance with Respiratory Ventilation, Less than 24 Consecutive Hours, Continuous Positive Airway Pressure (ICD-10-PCS; 2021-05-14)
PROC: 5A09357 Assistance with Respiratory Ventilation, Less than 24 Consecutive Hours, Continuous Positive Airway Pressure (ICD-10-PCS; 2021-05-15)
DX: A41.89 Other specified sepsis (principal); U07.1 COVID-19; J12.82 Pneumonia due to coronavirus disease 2019; J80 Acute respiratory distress syndrome; J15.9 Unspecified bacterial pneumonia; N17.9 Acute kidney failure, unspecified; E87.0 Hyperosmolality and hypernatremia; R65.20 Severe sepsis without septic shock; I10 Essential (primary) hypertension; E78.5 Hyperlipidemia, unspecified; K21.9 Gastro-esophageal reflux disease without esophagitis; E87.6 Hypokalemia; Z79.899 Other long term (current) drug therapy; R53.81 Other malaise
CPT/HCPCS: 10078; 10779; 10879